=== PATIENT | female | born 1990 | race Caucasian/White ===

== ENCOUNTER 2021-12-09 21:30 | Emergency (ER) | payer BC, SELFPAY ==
[2021-12-09 21:35] VITALS: BP 124/84; PULSE 79; RESP 16; TEMP 36.2; O2SAT 100
--- NOTE | 2021-12-09 22:02 | ED.GENADULT ---
HPI - General Adult General Chief complaint: Headache Stated complaint: blurred vision, headache Time Seen by Provider: 12/09/21 21:38 History of Present Illness HPI narrative: 31-year-old female presenting to the emergency department for evaluation of blurred vision, right arm weakness and some speech changes that have resolved. Patient states he does have prior history of complex ocular migraine and has had similar symptoms. Patient states that this has occurred twice prior to and 3 times during . Patient states symptoms started approximately 30 minutes ago and have since resolved. Patient was at rest when these occurred. Patient denies any associated chest pain or shortness of breath. Patient denies any nausea vomiting diarrhea abdominal cramping or vaginal bleeding. Related Data Allergies Allergy/AdvReac Type Severity Reaction Status Date / Time No Known Allergies Allergy Verified 12/09/21 21:38 Review of Systems Review of Systems: CONSTITUTIONAL: Denies fever, chills, or sweats. EYES: Denies visual changes, redness, or discharge. ENT: Denies rhinorrhea, congestion, sore throat, or otalgia. CARDIOVASCULAR: Denies chest pain, palpitations, or edema. RESPIRATORY: Denies cough or dyspnea. GASTROINTESTINAL: Denies abdominal pain, nausea, vomiting, or diarrhea. GENITOURINARY: Denies dysuria or hematuria. SKIN: Denies rash or itching. MUSCULOSKELETAL: Denies back pain, joint pain, or myalgia. NEUROLOGIC: See HPI Exam Narrative: APPEARANCE: Well appearing, no pain, no distress, well-nourished. HEAD: normocephalic, atraumatic. EYES: PERRLA/EOMI, conjunctivae clear. NOSE: Normal no drainage EARS:TMS clear with good light reflex. THROAT: Pharynx clear, no exudate. NECK: Supple. No adenopathy, no masses. RESPIRATORY: Airway patent, respirations nonlabored. Clear to auscultation bilaterally, no rales, rhonchi, wheezing. CARDIOVASCULAR: Regular rate and rhythm without murmurs rubs or gallops. ABDOMINAL: Soft, nontender, nondistended, normal bowel sounds MUSCULOSKELETAL: Moves all extremities. Strength/ROM intact, No edema, No calf tenderness. NEURO: Alert. Cranial nerves II through XII intact. Normal complex neuro exam. No speech abnormalities. No focal weakness or ataxia. Negative Romberg. Normal strength and reflexes. Normal forward and backward tandem gait. SKIN: Warm, dry. Normal Color Course Course Emergency Course: Patient reports all of her symptoms have resolved. Patient is declining labs and additional work-up. Patient is requesting discharge to home. Patient was educated on reasons to return to the emergency department. All question concerns were addressed. Vital Signs Vital signs: Vital Signs Temperature 97.1 F L 12/09/21 21:35 Pulse Rate 79 12/09/21 21:35 Respiratory Rate 16 12/09/21 21:35 Blood Pressure 124/84 12/09/21 21:35 Pulse Oximetry 100 12/09/21 21:35 Temperature 97.1 F L 12/09/21 21:35 Pulse Rate 79 12/09/21 21:35 Respiratory Rate 16 12/09/21 21:35 Blood Pressure 124/84 12/09/21 21:35 Pulse Oximetry 100 12/09/21 21:35 Medical Decision Making Vital Signs Vital Signs: Vital Signs Temperature 97.1 F L 12/09/21 21:35 Pulse Rate 79 12/09/21 21:35 Respiratory Rate 16 12/09/21 21:35 Blood Pressure 124/84 12/09/21 21:35 Pulse Oximetry 100 12/09/21 21:35 Temperature 97.1 F L 12/09/21 21:35 Pulse Rate 79 12/09/21 21:35 Respiratory Rate 16 12/09/21 21:35 Blood Pressure 124/84 12/09/21 21:35 Pulse Oximetry 100 12/09/21 21:35 Lab Data Lab results reviewed: Yes I reviewed the patient's lab results. Labs: Lab Results 12/09/21 Range/Units 23:03 Urine Color Light yellow (Yellow) Urine Appearance Cloudy H (Clear) Urine pH 6.0 (5.0-9.0) Ur Specific [place] 1.015 (1.001-1.035) Urine Protein Negative (Negative) mg/dL Urine Glucose (UA) Negative (Negative) mg/dL Urine Ketones
[2021-12-09 23:14] LABS: Bacteria Urine Trace /hpf; Squamous Epithelial Cell Urine Many /hpf (Few)
[2021-12-09 23:15] LABS: Add Urine Microscopic? YES; Appearance Urine Cloudy (Clear); Bilirubin Urine Negative (Negative); Blood Urine Negative (Negative); Color Urine Light Yellow (Yellow); Glucose Urine UA Negative (Negative); Ketones Urine Negative (Negative); Leukocyte Esterase Ur 1+ LEU/UL (Negative); Nitrate Urine Negative (Negative); Protein Urine Negative (Negative); Specific Grav Ur 1.015 (1.001-1.035); Urobilinogen Urine 0.2 mg/dL (<2.0)
== END 2021-12-09 23:24 | disposition home or self-care (01) ==
PROVIDERS: Emergency Provider Emergency Medicine
DX: O26.899 Other specified pregnancy related conditions, unspecified trimester (principal); R51.9 Headache, unspecified; Z3A.00 Weeks of gestation of pregnancy not specified
CPT/HCPCS: 81001; 99283